=== PATIENT | female | born 1960 | race African-American/Black ===

== ENCOUNTER 2020-03-07 02:16 | Inpatient (IN) ==
[2020-03-07 02:45] LABS: Basophils % 0.2 % (0.0-0.8); Eosinophils % 0.4 % (0.00-10.9); Hemoglobin 12.6 GM/DL (12.0-16.0); Immature Granulocytes % 7.3 %; Immature Granulocytes Absolute 0.62 #; Lymphocytes # 0.8 10*3/uL (1.4-4.0); Lymphocytes % 8.8 % (21.3-54.2); Mean Corpuscular HGB Conc 34.1 GM/DL (32-36); Mean Corpuscular Volume 94.6 FL (87-102); Mean Platelet Volume 10.9 FL (9.6-12.0); Monocytes % 3.6 % (1.7-12.7); Neutrophils % 79.7 % (38.7-73.9); Platelet Count 208 T/CUMM (130-400); Red Blood Count 3.91 MC/CUMM (3.8-5.5); Red Cell Distribution Width 11.9 % (9.3-17.3); White Blood Count 8.5 T/CUMM (4-12)
[2020-03-07 03:03] LABS: INR 1.1; PT Patient Result 11.4 SECS (9.8-11.9)
[2020-03-07 03:05] LABS: Albumin 3.5 G/DL (3.4-5.0); Bilirubin,Total 1.2 MG/DL (0.2-1.0); Calcium 8.3 MG/DL (8.5-10.1); Osmolality,Calculated 292.8 MOS/KG (273-304); Potassium 3.4 MMOL/L (3.5-5.1); Total Protein 7.1 G/DL (6.4-8.3)
[2020-03-07 03:18] LABS: Bacteria,Urine Occasional /HPF (Few); Bilirubin,Urine Negative (Negative); Blood, Urine Small mg/dL (Negative); Glucose,Urine (UA) Negative (Negative); Ketones,Urine Negative (Negative); Mucus,Urine Occasional /LPF (Occasional); Nitrite,Urine Negative (Negative); Protein,Urine 100 MG/DL; RBC,Urine 7 /HPF (0-4); Squamous Epithelial Cell,Urine Occasional /HPF (0-10); Urine Appearance Slightly Hazy (Clear); Urine Color Yellow (Yellow); Urine Specific Gravity 1.008 (1.001-1.035); Urine Urobilinogen < 2.0 EU/DL (0.2-1.0); WBC,Urine 4 /HPF (0-6)
[2020-03-07 03:21] LABS: Band Neutrophils 2 % (0-10); Eosinophils 1 % (0-10); Lymphocytes 12 % (20-55); Platelet Estimate Normal; Segmented Neutrophils 81 % (50-85); Total Cells Counted 100
[2020-03-07] MEDS ORDERED: ALBUTEROL 2.5 MG/3 ML NEB RESP TX PRN (03:44)
[2020-03-07] MEDS ORDERED: ONDANSETRON 4 MG/2 ML VIAL IV PRN (03:44)
[2020-03-07] MEDS ORDERED: DOCUSATE SODIUM 100 MG CAPSULE PO PRN (03:44)
[2020-03-07] MEDS ORDERED: ENOXAPARIN 40 MG/0.4 ML SYRINGE SUBCUT SCH (04:00)
[2020-03-07] MEDS ORDERED: MAGNESIUM SULF RIDER 4 GM in PREMIX 1 EACH IV PRN (04:00)
[2020-03-07] MEDS ORDERED: MAGNESIUM SULF RIDER 2 GM in PREMIX 1 EACH IV PRN (04:00)
[2020-03-07 04:12] LABS: ABG Base Excess 0.4 MMOL/L (-2.5-2.5); ABG HCO3 24.8 MMOL/L (20-26); ABG Oxygen Saturation 96.2 % (95-100); ABG PCO2 49.9 MM HG (35-48); ABG PH 7.341 (7.35-7.45); ABG PO2 89.5 MM HG (80-95); ABG TCO2 23.8 MMOL/L (23-27); Allen Test Positive; Pt O2 Delivery Device Ventilator
[2020-03-07] MEDS: POTASSIUM CHLORIDE RIDER 10 MEQ in PREMIX 1 EACH IV PRN ×3 (04:30→06:29)
[2020-03-07 05:55] LABS: Risk Ratio 2.06; Thyroid Stimulating Hormone 5.06 uIU/ml (0.358-3.74); VLDL CHOLESTEROL 14.4 MG/DL
[2020-03-07 06:12] LABS: Barbiturates Screen,Urine Negative (Negative); Benzodiazepines Screen,Urine Positive (Negative); Cannabinoid Screen,Urine Negative (Negative); Opiate Screen,Urine Negative (Negative); Phencyclidine Screen,Urine Negative (Negative)
[2020-03-07] MEDS: ENOXAPARIN 30 MG/0.3 ML SYRINGE SUBCUT SCH (07:45)
[2020-03-07] MEDS: FUROSEMIDE 40 MG/4 ML VIAL IV SCH ×2 (08:01→16:21)
[2020-03-07] MEDS: PANTOPRAZOLE 40 MG VIAL IV SCH (09:15)
[2020-03-07] MEDS: ASPIRIN CHEW 81 MG TABLET PO SCH (09:15)
[2020-03-07] MEDS: carvediloL 3.125 MG TABLET PO SCH ×2 (10:54→22:00)
[2020-03-07] MEDS ORDERED: AZITHROMYCIN INJ 500 MG in SODIUM CHLORIDE 0.9% 250 ML IV ONE (13:44)
[2020-03-07] MEDS: cefTRIAXone 1,000 MG in SYRINGE 1 EACH IV SCH (15:07)
[2020-03-07 17:24] LABS: ABG HCO3 25.3 MMOL/L (20-26); ABG Oxygen Saturation 99.5 % (95-100); ABG PH 7.437 (7.35-7.45); ABG TCO2 22.1 MMOL/L (23-27)
[2020-03-08 05:00] LABS: Allen Test Positive; Pt O2 Delivery Device Ventilator
[2020-03-08 05:03] LABS: ABG Base Excess 1.6 MMOL/L (-2.5-2.5); ABG HCO3 24.6 MMOL/L (20-26); ABG PH 7.477 (7.35-7.45); ABG PO2 107.9 MM HG (80-95); ABG TCO2 25.6 MMOL/L (23-27)
[2020-03-08 05:04] LABS: ABG Oxygen Saturation 98.3 % (95-100)
[2020-03-08 07:53] LABS: Basophils % 0.2 % (0.0-0.8); Hematocrit 33.6 VOL% (35.7-47.0); Hemoglobin 11.5 GM/DL (12.0-16.0); Immature Granulocytes % 0.6 %; Immature Granulocytes Absolute 0.06 #; Lymphocytes # 0.8 10*3/uL (1.4-4.0); Lymphocytes % 7.7 % (21.3-54.2); Mean Corpuscular HGB Conc 34.2 GM/DL (32-36); Mean Corpuscular Volume 94.6 FL (87-102); Mean Platelet Volume 11.7 FL (9.6-12.0); Monocytes % 8.8 % (1.7-12.7); Neutrophils % 82.7 % (38.7-73.9); Platelet Count 153 T/CUMM (130-400); Red Blood Count 3.55 MC/CUMM (3.8-5.5); Red Cell Distribution Width 12.1 % (9.3-17.3); White Blood Count 10.7 T/CUMM (4-12)
[2020-03-08] MEDS: FUROSEMIDE 40 MG/4 ML VIAL IV SCH ×2 (08:11→17:03)
[2020-03-08] MEDS: PANTOPRAZOLE 40 MG VIAL IV SCH (08:11)
[2020-03-08] MEDS: ENOXAPARIN 30 MG/0.3 ML SYRINGE SUBCUT SCH (08:11)
[2020-03-08] MEDS: ASPIRIN CHEW 81 MG TABLET PO SCH (08:12)
[2020-03-08] MEDS: carvediloL 3.125 MG TABLET PO SCH ×2 (08:12→20:06)
[2020-03-08 08:17] LABS: Albumin 2.8 G/DL (3.4-5.0); Bilirubin,Total 2.9 MG/DL (0.2-1.0); Calcium 7.8 MG/DL (8.5-10.1); Osmolality,Calculated 298.4 MOS/KG (273-304); Potassium 3.1 MMOL/L (3.5-5.1); Total Protein 6.3 G/DL (6.4-8.3)
[2020-03-08] MEDS: ISOSORBIDE MONONITRATE 30 MG TABLET PO SCH (10:29)
[2020-03-08] MEDS: cefTRIAXone 1,000 MG in SYRINGE 1 EACH IV SCH (13:55)
[2020-03-08] MEDS: AZITHROMYCIN INJ 250 MG in SODIUM CHLORIDE 0.9% 250 ML IV SCH (13:55)
[2020-03-08] MEDS: hydrALAZINE 25 MG TABLET PO SCH ×2 (13:57→20:06)
[2020-03-08] MEDS ORDERED: POTASSIUM CHLORIDE RIDER IV ONE (19:38)
[2020-03-08] MEDS: POTASSIUM CHLORIDE RIDER 10 MEQ in PREMIX 1 EACH IV PRN ×4 (19:45→22:40)
[2020-03-09 04:28] LABS: ABG Base Excess 1.2 MMOL/L (-2.5-2.5); ABG HCO3 22.9 MMOL/L (20-26); ABG Oxygen Saturation 98.2 % (95-100); ABG PCO2 27.5 MM HG (35-48); ABG PH 7.538 (7.35-7.45); ABG PO2 118.8 MM HG (80-95); ABG TCO2 23.7 MMOL/L (23-27); Allen Test Positive; Pt O2 Delivery Device Ventilator
[2020-03-09 05:43] LABS: Basophils % 0.2 % (0.0-0.8); Hematocrit 30.9 VOL% (35.7-47.0); Hemoglobin 10.4 GM/DL (12.0-16.0); Immature Granulocytes % 0.5 %; Immature Granulocytes Absolute 0.06 #; Lymphocytes # 0.7 10*3/uL (1.4-4.0); Lymphocytes % 5.8 % (21.3-54.2); Mean Corpuscular HGB Conc 33.7 GM/DL (32-36); Mean Corpuscular Volume 97.2 FL (87-102); Mean Platelet Volume 11.5 FL (9.6-12.0); Neutrophils % 86.5 % (38.7-73.9); Platelet Count 136 T/CUMM (130-400); Red Blood Count 3.18 MC/CUMM (3.8-5.5); Red Cell Distribution Width 12.5 % (9.3-17.3); White Blood Count 11.4 T/CUMM (4-12)
[2020-03-09 06:43] LABS: Albumin 2.6 G/DL (3.4-5.0); Bilirubin,Total 2.5 MG/DL (0.2-1.0); Calcium 8.7 MG/DL (8.5-10.1); Osmolality,Calculated 302.3 MOS/KG (273-304); Potassium 3.2 MMOL/L (3.5-5.1); Total Protein 6.5 G/DL (6.4-8.3)
[2020-03-09] MEDS: POTASSIUM CHLORIDE RIDER 10 MEQ in PREMIX 1 EACH IV PRN (07:00)
[2020-03-09] MEDS: ENOXAPARIN 30 MG/0.3 ML SYRINGE SUBCUT SCH (07:10)
[2020-03-09] MEDS: PANTOPRAZOLE 40 MG VIAL IV SCH (07:40)
[2020-03-09] MEDS: ASPIRIN CHEW 81 MG TABLET PO SCH (07:40)
[2020-03-09] MEDS: hydrALAZINE 25 MG TABLET PO SCH ×3 (07:40→21:15)
[2020-03-09] MEDS: ISOSORBIDE MONONITRATE 30 MG TABLET PO SCH (07:40)
[2020-03-09] MEDS: carvediloL 3.125 MG TABLET PO SCH (07:40)
[2020-03-09] MEDS: cefTRIAXone 1,000 MG in SYRINGE 1 EACH IV SCH (14:00)
[2020-03-09] MEDS: AZITHROMYCIN INJ 250 MG in SODIUM CHLORIDE 0.9% 250 ML IV SCH (14:00)
[2020-03-09] MEDS ORDERED: carvediloL 6.25 MG TABLET NG SCH (21:00)
[2020-03-09] MEDS: ATORVASTATIN 40 MG TABLET PO SCH (21:15)
[2020-03-09] MEDS: carvediloL 12.5 MG TABLET PO SCH (21:15)
[2020-03-10] MEDS ORDERED: ASPIRIN EC 81 MG TABLET PO SCH (09:00)
[2020-03-10] MEDS ORDERED: ISOSORBIDE MONONITRATE 30 MG TABLET PO SCH (09:00)
[2020-03-10] MEDS ORDERED: PANTOPRAZOLE 40 MG TABLET PO SCH (09:00)
[2020-03-10] MEDS: ENOXAPARIN 30 MG/0.3 ML SYRINGE SUBCUT SCH (09:12)
[2020-03-10] MEDS: carvediloL 12.5 MG TABLET PO SCH ×2 (09:13→16:31)
[2020-03-10] MEDS: PANTOPRAZOLE 40 MG VIAL IV SCH (09:14)
[2020-03-10] MEDS: ASPIRIN CHEW 81 MG TABLET PO SCH (09:15)
[2020-03-10] MEDS: AZITHROMYCIN INJ 250 MG in SODIUM CHLORIDE 0.9% 250 ML IV SCH ×2 (16:31→19:20)
[2020-03-10] MEDS: cefTRIAXone 1,000 MG in SYRINGE 1 EACH IV SCH ×2 (16:31→19:20)
[2020-03-10] MEDS: ACETAMINOPHEN 325 MG TABLET PO PRN (16:37)
[2020-03-10] MEDS: ATORVASTATIN 40 MG TABLET PO SCH (21:24)
[2020-03-11] MEDS: ACETAMINOPHEN 325 MG TABLET PO PRN (02:26)
[2020-03-11 02:42] VITALS: BP 127/73
[2020-03-11 05:26] LABS: Basophils % 0.4 % (0.0-0.8); Eosinophils # 0.2 10*3/uL (0.0-0.87); Eosinophils % 3.5 % (0.00-10.9); Hematocrit 27.6 VOL% (35.7-47.0); Hemoglobin 9.3 GM/DL (12.0-16.0); Immature Granulocytes % 0.4 %; Immature Granulocytes Absolute 0.02 #; Lymphocytes # 0.6 10*3/uL (1.4-4.0); Lymphocytes % 12.4 % (21.3-54.2); Mean Corpuscular HGB Conc 33.7 GM/DL (32-36); Mean Corpuscular Volume 96.2 FL (87-102); Mean Platelet Volume 11.2 FL (9.6-12.0); Monocytes % 12.4 % (1.7-12.7); Neutrophils % 70.9 % (38.7-73.9); Platelet Count 145 T/CUMM (130-400); Red Blood Count 2.87 MC/CUMM (3.8-5.5); Red Cell Distribution Width 11.8 % (9.3-17.3); White Blood Count 4.5 T/CUMM (4-12)
[2020-03-11 05:41] LABS: Calcium 8.8 MG/DL (8.5-10.1); Potassium 3.1 MMOL/L (3.5-5.1)
== END 2020-03-11 07:19 | disposition left against medical advice (07) | DRG 133 ==
LOC: N.ED 02:16 → SUATTDRO 03:35 → N.EDINP 03:35 → N.ICU 03-08 03:38 → N.TELES 03-09 18:14
PROVIDERS: ADMIT Family Medicine; ATTEND Internal Medicine

== ENCOUNTER 2020-03-13 16:05 | Observation (INO) ==
[2020-03-13] MEDS ORDERED: LORazepam 2 MG/1 ML VIAL IM STA (18:05)
[2020-03-13 19:16] LABS: Hematocrit 27.4 VOL% (35.7-47.0); Hemoglobin 9.1 GM/DL (12.0-16.0); Immature Granulocytes % 0.7 %; Immature Granulocytes Absolute 0.06 #; Lymphocytes # 0.5 10*3/uL (1.4-4.0); Lymphocytes % 6.5 % (21.3-54.2); Mean Corpuscular HGB Conc 33.2 GM/DL (32-36); Mean Corpuscular Volume 97.2 FL (87-102); Mean Platelet Volume 11.1 FL (9.6-12.0); Monocytes % 12.3 % (1.7-12.7); Neutrophils % 80.5 % (38.7-73.9); Platelet Count 227 T/CUMM (130-400); Red Blood Count 2.82 MC/CUMM (3.8-5.5); Red Cell Distribution Width 11.8 % (9.3-17.3)
[2020-03-13 19:31] LABS: Albumin 2.6 G/DL (3.4-5.0); Bilirubin,Total 1.7 MG/DL (0.2-1.0); Calcium 9.1 MG/DL (8.5-10.1); Osmolality,Calculated 283.8 MOS/KG (273-304); Potassium 3.6 MMOL/L (3.5-5.1); Total Protein 6.3 G/DL (6.4-8.3)
[2020-03-13] MEDS ORDERED: ENOXAPARIN 30 MG/0.3 ML SYRINGE SUBCUT STA (21:04)
[2020-03-13] MEDS ORDERED: ENOXAPARIN 80 MG/0.8 ML SYRINGE SUBCUT ONE (21:10)
[2020-03-14] MEDS ORDERED: DEXTROSE 50% 25 GM/50 ML VIAL IV PRN (00:29)
[2020-03-14] MEDS ORDERED: MORPHINE 4 MG/1 ML VIAL IV PRN (00:29)
[2020-03-14] MEDS ORDERED: DOCUSATE SODIUM 100 MG CAPSULE PO PRN (00:29)
[2020-03-14] MEDS ORDERED: GLUCAGON 1 MG VIAL IM PRN (00:29)
[2020-03-14] MEDS ORDERED: ONDANSETRON 4 MG/2 ML VIAL IV PRN (00:29)
[2020-03-14] MEDS ORDERED: ACETAMINOPHEN 325 MG TABLET PO PRN (00:29)
[2020-03-14] MEDS ORDERED: guaiFENesin/CODEINE 5 ML LIQUID PO PRN (00:40)
[2020-03-14] MEDS ORDERED: DEXTROSE 50% 25 GM/50 ML SYRINGE IV PRN (00:47)
[2020-03-14 04:07] LABS: Basophils % 0.1 % (0.0-0.8); Eosinophils % 0.2 % (0.00-10.9); Hematocrit 25.1 VOL% (35.7-47.0); Hemoglobin 8.3 GM/DL (12.0-16.0); Immature Granulocytes % 0.7 %; Immature Granulocytes Absolute 0.07 #; Lymphocytes # 0.9 10*3/uL (1.4-4.0); Lymphocytes % 9.7 % (21.3-54.2); Mean Corpuscular HGB Conc 33.1 GM/DL (32-36); Mean Platelet Volume 11.2 FL (9.6-12.0); Monocytes # 1.1 10*3/uL (0.11-0.8); Monocytes % 11.4 % (1.7-12.7); Neutrophils % 77.9 % (38.7-73.9); Platelet Count 251 T/CUMM (130-400); Red Blood Count 2.56 MC/CUMM (3.8-5.5); Red Cell Distribution Width 11.9 % (9.3-17.3); White Blood Count 9.7 T/CUMM (4-12)
[2020-03-14 04:24] LABS: Albumin 2.5 G/DL (3.4-5.0); Bilirubin,Total 1.3 MG/DL (0.2-1.0); Calcium 9.5 MG/DL (8.5-10.1); Osmolality,Calculated 283.8 MOS/KG (273-304); Potassium 3.1 MMOL/L (3.5-5.1); Total Protein 6.9 G/DL (6.4-8.3)
[2020-03-14] MEDS ORDERED: carvediloL 12.5 MG TABLET PO SCH (08:00)
[2020-03-14] MEDS ORDERED: lisinopriL 20 MG TABLET PO SCH (09:00)
[2020-03-14] MEDS ORDERED: POTASSIUM CHLORIDE 20 MEQ TABLET PO SCH (09:00)
[2020-03-14] MEDS ORDERED: PANTOPRAZOLE 40 MG TABLET PO SCH (09:00)
[2020-03-14] MEDS ORDERED: ENOXAPARIN 80 MG/0.8 ML SYRINGE SUBCUT SCH (09:00)
[2020-03-14] MEDS ORDERED: FUROSEMIDE 40 MG/4 ML VIAL IV SCH (09:00)
[2020-03-14] MEDS ORDERED: CLOPIDOGREL 75 MG TABLET PO SCH (09:00)
[2020-03-14] MEDS ORDERED: ASPIRIN EC 81 MG TABLET PO SCH (09:00)
[2020-03-14] MEDS ORDERED: ISOSORBIDE MONONITRATE 30 MG TABLET PO SCH (11:30)
[2020-03-14] MEDS ORDERED: hydrALAZINE 25 MG TABLET PO SCH (11:30)
[2020-03-14] MEDS ORDERED: POTASSIUM CHLORIDE 20 MEQ TABLET PO ONE (12:35)
[2020-03-14] MEDS ORDERED: FUROSEMIDE 40 MG/4 ML VIAL IV STA (12:35)
[2020-03-14] MEDS ORDERED: APIXABAN 5 MG TABLET PO ONE (12:36)
[2020-03-14] MEDS ORDERED: POTASSIUM BICARB EFFERVESCENT 25 MEQ TAB.EFF PO ONE (12:40)
[2020-03-14] MEDS ORDERED: APIXABAN 5 MG TABLET ONE (12:58)
[2020-03-14] MEDS ORDERED: ATORVASTATIN 40 MG TABLET PO SCH (21:00)
[2020-03-15 08:32] VITALS: BP 158/64
== END 2020-03-14 14:20 | disposition home or self-care (01) ==
LOC: N.ED 16:05 → N.EDINP 16:05
PROVIDERS: ADMIT Internal Medicine; ATTEND Internal Medicine